=== PATIENT | male | born 1950 | race Caucasian/White ===

== ENCOUNTER 2017-11-02 21:03 | Emergency (ER) | payer MEDICARE, OTHER ==
[~2017-11-02] VITALS: Ht 175.3 cm; Wt 99.8 kg
[~2017-11-02 21:03] MED LIST: ASPIR 8181 MG; COZAAR100 MG; CRESTOR10 MG; DEMADEX20 MG; ELIQUIS5 MG; FERREX 150150 MG; FISH OIL 1,001000 M2; FLOMAX0.4 MG; FLONASE 0.05%50 MCG; MUCINEX TA600 MG/TA2; NIASPAN ER 101000 M1; NITROGLYCERIN0.4 MG; PERCOCET 7.5-31 EACH; POTASSIUM20; PREDNISONE 5 MG5 M1; PROTONIX40 M1; SYNTHROID175 MCG PO; TOPROL XL100 MG; WELLBUTRIN XL300 MG; XANAX1 MG
[2017-11-02] MEDS ORDERED: CLONAZEPAM 0.50.5 M1 (21:17)
[2017-11-02] MEDS ORDERED: ASPIR 8181 MG PO (21:17)
[2017-11-02] MEDS ORDERED: CLONAZEPAM 1 MG1 M1 (21:18)
[2017-11-02] MEDS ORDERED: RESTORIL15 MG PO (22:35)
[2017-11-02] MEDS ORDERED: BENZONATATE200 MG PO (22:35)
[2017-11-02 23:01] VITALS: BP 157/89
== END 2017-11-02 23:03 | disposition home or self-care (01) ==
LOC: M.ERS 21:03
DX: S20.211A Contusion of right front wall of thorax, initial encounter (principal); I10 Essential (primary) hypertension; K21.9 Gastro-esophageal reflux disease without esophagitis; E03.9 Hypothyroidism, unspecified; F32.9 Major depressive disorder, single episode, unspecified; I48.91 Unspecified atrial fibrillation; Z86.73 Personal history of transient ischemic attack (TIA), and cerebral infarction without residual deficits; Z95.1 Presence of aortocoronary bypass graft; Z95.5 Presence of coronary angioplasty implant and graft; X58.XXXA Exposure to other specified factors, initial encounter; Y93.89 Activity, other specified; Y92.89 Other specified places as the place of occurrence of the external cause; Y99.8 Other external cause status

== ENCOUNTER 2018-02-08 11:27 | Emergency (ER) | payer MEDICARE, OTHER ==
[~2018-02-08] VITALS: Ht 175.3 cm; Wt 99.3 kg
[~2018-02-08 11:27] MED LIST changes: +ASPIR 8181 MG PO; +BENZONATATE200 MG PO; +CLONAZEPAM 0.50.5 M1; +CLONAZEPAM 1 MG1 M1; +RESTORIL15 MG PO
[2018-02-08] MEDS ORDERED: LOVAZA1000 MG PO (11:39)
[2018-02-08] MEDS ORDERED: FLOMAX0.4 MG PO (11:40)
[2018-02-08] MEDS ORDERED: DEMADEX20 MG PO (11:40)
[2018-02-08 11:55] LABS: ABSOLUTE BASOPHILS 0.2 thou/uL (0.0-0.2); ABSOLUTE EOSINOPHILS 0.7 thou/uL (0.0-0.7); ABSOLUTE LYMPHOCYTES 1.9 thou/uL (0.8-5.3); ABSOLUTE MONOCYTES 1.1 thou/uL (0.0-1.2); ABSOLUTE NEUTROPHILS 8.1 thou/uL (1.6-8.1); BASOPHILS 1.3 %; EOSINOPHILS 5.5 %; HEMOGLOBIN 15.9 gm/dL (14.0-18.0); LYMPHOCYTES 15.6 %; MCH 31.1 pg (26.0-34.0); MCHC 33.9 g/dL (28.0-37.0); MCV 91.7 fL (80.0-100.0); MONOCYTES 9.5 %; MPV 7.8 fl. (7.2-11.1); NUCLEATED RBCS 0 /100WBC; PLATELET COUNT* 185 thou/uL (150-400); POLYS 68.1 %; RBC 5.12 mil/uL (4.50-6.00); RDW-CV 14.3 % (10.5-14.5); WBC 11.9 thou/uL (4.0-11.0)
[2018-02-08 11:58] LABS: ANION GAP 7 mmol/L (7-16); BUN 15 mg/dL (7-18); CALCIUM 8.7 mg/dL (8.5-10.1); CHLORIDE 107 mmol/L (98-107); CO2 29 mmol/L (21-32); CREATININE 1.3 mg/dL (0.6-1.3); GLUCOSE 123 mg/dL (70-99); POTASSIUM 3.9 mmol/L (3.5-5.1); SODIUM 143 mmol/L (136-145)
[2018-02-08 12:01] LABS: INR 1.2; PROTIME 11.2 Seconds (9.20-11.50)
[2018-02-08 12:09] LABS: ALBUMIN 3.2 g/dL (3.4-5.0); ALKALINE PHOSPHATASE 98 U/L (46-116); LIPASE 126 U/L (73-393); NT-PRO BRAIN NAT PEPTIDE 1007 pg/mL (<300); SGOT 60 U/L (15-37); SGPT 72 U/L (30-65); TOTAL BILIRUBIN 0.8 mg/dL (<0.1-1.0); TROPONIN-I LEVEL <0.06 ng/mL (<0.06)
[2018-02-08 12:17] LABS: URINE BILIRUBIN NEGATIVE (Negative); URINE BLOOD TRACE (Negative); URINE CLARITY CLEAR; URINE COLOR YELLOW; URINE GLUCOSE-RANDOM NEGATIVE (Negative); URINE KETONES NEGATIVE (Negative); URINE LEUKOCYTES-REFLEX NEGATIVE (Negative); URINE NITRITE-REFLEX NEGATIVE (Negative); URINE PROTEIN NEGATIVE (Negative); URINE SPECIFIC GRAVITY 1.015 (1.005-1.030); URINE UROBILINOGEN 0.2 E.U./dl (0.2-1.0)
[2018-02-08 14:29] VITALS: BP 108/75
--- NOTE | 2018-02-09 11:00 | EKG ---
[place] [address] ELECTROCARDIOGRAM REPORT Name: CIERRA CHENG [id number] Admission: 02/08/18 Attend Phys: Discharge: 02/08/18 Date of : 46 Report #: [id number] THIS REPORT FOR: //name// [facility] ED Test Date: 2018-02-08 Test Time: 11:31:28 Pat Name: CIERRA CHENG Department: Room: Gender: M Digital Marketing Strategist: : 1950 Requested By: Mansoor Simental Order Number: [id number] MD: Cassius Negron Measurements Intervals [place] Rate: 96 P: ND: QRS: 111 QRSD: 89 T: 18 QT: 382 QTc: 483 Interpretive Statements Atrial tachycardia Right axis deviation Borderline low voltage, extremity leads Abnormal R-wave progression, late transition Borderline ST depression, anterolateral leads Prolonged QT interval Baseline wander in lead(s) V3,V4 Compared to ECG 05/08/2016 02:37:34 no change Electronically Signed On 02-09-2018 10:59:55 CDT by Cassius Negron [email or web address] <ELECTRONICALLY SIGNED> By: Cassius Negron MD, FAC 02/09/18 1059 1131 1131 Cassius Negron MD, [facility] /EPI
--- NOTE | 2018-02-09 11:01 | EKG ---
[place] [address] ELECTROCARDIOGRAM REPORT Name: CIERRA CHENG [facility] [id number] Admission: 02/08/18 Attend Phys: Discharge: 02/08/18 Date of : 46 Report #: [id number] THIS REPORT FOR: //name// [facility] ED Test Date: 2018-02-08 Test Time: 12:48:20 Pat Name: CIERRA CHENG Department: Room: Gender: M Workday Consultant: Nigel [place] : 1950 Requested By: Mansoor Simental Order Number: [id number] MD: Cassius Negron Measurements Intervals [place] Rate: 91 P: IN: QRS: 166 QRSD: 158 T: -12 QT: 455 QTc: 560 Interpretive Statements Atrial tachycardia late transition Electronically Signed On 02-09-2018 11:01:30 CDT by Cassius Negron [email or web address] <ELECTRONICALLY SIGNED> By: Cassius Negron MD, [facility] 02/09/18 1101 1248 1248 Cassius Negron MD, FACC /EPI
== END 2018-02-08 14:31 | disposition home or self-care (01) ==
LOC: M.ERS 11:27
PROVIDERS: Emergency Medicine
DX: I48.91 Unspecified atrial fibrillation (principal); I10 Essential (primary) hypertension; G47.30 Sleep apnea, unspecified; K21.9 Gastro-esophageal reflux disease without esophagitis; E03.9 Hypothyroidism, unspecified; F32.9 Major depressive disorder, single episode, unspecified; N40.0 Benign prostatic hyperplasia without lower urinary tract symptoms; M10.9 Gout, unspecified; Z86.73 Personal history of transient ischemic attack (TIA), and cerebral infarction without residual deficits; Z88.8 Allergy status to other drugs, medicaments and biological substances

== ENCOUNTER 2019-03-18 22:09 | Observation (INO) | payer MEDICARE, OTHER ==
[~2019-03-18] VITALS: Ht 175.3 cm; Wt 100.7 kg
[~2019-03-18 22:09] MED LIST changes: -CLONAZEPAM 0.50.5 M1; +CLONAZEPAM 0.50.5 M1 PO; -CRESTOR10 MG; +CRESTOR10 MG PO; +DEMADEX20 MG PO; -FERREX 150150 MG; +FERREX 150150 MG PO; +FLOMAX0.4 MG PO; -FLONASE 0.05%50 MCG; +FLONASE 0.05%50 MCG INH; +LOVAZA1000 MG PO; -MUCINEX TA600 MG/TA2; +MUCINEX100 MG PO; +NIASPAN 500 MG500 M1 PO; -NIASPAN ER 101000 M1; -NITROGLYCERIN0.4 MG; +NITROGLYCERIN0.4 MG SUBLING; -POTASSIUM20; +POTASSIUM20 PO; -TOPROL XL100 MG; +TOPROL XL50 MG PO; -WELLBUTRIN XL300 MG; +WELLBUTRIN XL300 MG PO
[2019-03-18 22:23] VITALS: BP 140/76
[2019-03-18 22:34] LABS: ABSOLUTE BASOPHILS 0.1 thou/uL (0.0-0.2); ABSOLUTE EOSINOPHILS 0.4 thou/uL (0.0-0.7); ABSOLUTE LYMPHOCYTES 1.8 thou/uL (0.8-5.3); ABSOLUTE MONOCYTES 1.2 thou/uL (0.0-1.2); ABSOLUTE NEUTROPHILS 8.4 thou/uL (1.6-8.1); BASOPHILS 0.9 %; EOSINOPHILS 3.3 %; HEMATOCRIT 45.8 % (42.0-52.0); HEMOGLOBIN 15.6 gm/dL (14.0-18.0); LYMPHOCYTES 15.4 %; MCH 31.1 pg (26.0-34.0); MCV 91.3 fL (80.0-100.0); MONOCYTES 10.3 %; MPV 7.6 fl. (7.2-11.1); NUCLEATED RBCS 0 /100WBC; PLATELET COUNT* 184 thou/uL (150-400); POLYS 70.1 %; RBC 5.02 mil/uL (4.50-6.00); RDW-CV 14.5 % (10.5-14.5); WBC 11.9 thou/uL (4.0-11.0)
[2019-03-18 22:52] LABS: APTT 29.2 Seconds (25.0-31.3); INR 1.1; PROTIME 11.4 Seconds (9.20-11.50)
[2019-03-18 23:11] LABS: POTASSIUM 4.1 mmol/L (3.5-5.1); TOTAL BILIRUBIN 0.6 mg/dL (<0.1-1.0); TOTAL PROTEIN 6.7 g/dL (6.4-8.2); TROPONIN-I LEVEL 0.15 ng/mL (<0.06)
[2019-03-18 23:31] LABS: ALBUMIN 2.9 g/dL (3.4-5.0); CALCIUM 9.1 mg/dL (8.5-10.1); CREATININE 1.4 mg/dL (0.6-1.3); MAGNESIUM 2.1 mg/dL (1.8-2.4)
[2019-03-19 00:20] VITALS: BP 166/94
[2019-03-19 00:45] VITALS: BP 155/77
--- NOTE | 2019-03-19 00:45 | NUR ---
REPORT RECEIVED FROM ER AND ADMITTED TO ROOM. PT CONT HAVING CP RATING 2/10, JUST ANNOYING. O2 ON AT 2L/NC, NO SOB NOTED. TELEMETRY APPLIED SHOWING SR. SEE ADMISSION ASSESSMENT AND HX. STAYING AT BEDSIDE. WILL CONT TO MONITOR AND ASSIST NEEDED.
[2019-03-19] MEDS ORDERED: DEXILANT30 MG PO (01:01)
[2019-03-19] MEDS ORDERED: ZYRTEC10 M5 PO (01:11)
[2019-03-19] MEDS ORDERED: MULTAQ 400 MG400 MG PO (01:12)
[2019-03-19] MEDS ORDERED: NEURONTIN600 MG PO (01:13)
[2019-03-19] MEDS ORDERED: FINASTERIDE5 MG PO (01:15)
[2019-03-19] MEDS ORDERED: AZELASTINE137 MCG/0. INH (01:17)
[2019-03-19] MEDS ORDERED: PLAVIX 75 MG TA75 M1 PO (01:19)
[2019-03-19] MEDS ORDERED: SYMBICORT160 MCG/4. INH (01:20)
[2019-03-19] MEDS ORDERED: VENTOLIN HFA 1818 GM INH (01:21)
[2019-03-19] MEDS ORDERED: GLYBURIDE 2.52.5 MG PO (01:22)
[2019-03-19 04:00] VITALS: BP 123/66
--- NOTE | 2019-03-19 06:22 | NUR ---
SLEPT WELL TONIGHT AFTER 0200, NPO FOR POSS TEST TODAY. TELEMETRY SHOWING SB WITH 1ST AVB WHILE SLEEPING. HS GOALS OF REST AND SAFETY ACHIEVED. HOURLY ROUNDING OBSERVED.
[2019-03-19 08:36] VITALS: BP 159/89
--- NOTE | 2019-03-19 10:59 | EKG ---
[place] [address] ELECTROCARDIOGRAM REPORT Name: CIERRA CHENG Room: [address] ADM IN .R.#: [id number] Admission: 03/18/19 Attend Phys: Micheal Mendez MD Discharge: Date of : 46 Report #: [id number] THIS REPORT FOR: //name// [facility] ED Test Date: 2019-03-18 Test Time: 22:15:28 Pat Name: CIERRA CHENG Department: Room: [facility] Gender: M Manager Valuation: AJ : 1950 Requested By: Morales Lnua Order Number: [id number] MD: Cassius Negron Measurements Intervals [place] Rate: 63 P: 36 [place]: 202 QRS: 126 QRSD: 93 T: 173 QT: 402 QTc: 412 Interpretive Statements Sinus rhythm artifact noted Right axis deviation Abnormal R-wave progression, late transition Nonspecific T abnrm, anterolateral leads Compared to ECG 02/08/2018 12:48:20 Ectopic atrial tachycardia, unifocal no longer present Electronically Signed On 03-19-2019 10:59:37 CDT by Cassius Negron [email or web address] <ELECTRONICALLY SIGNED> By: Cassius Negron MD, [facility] 03/19/19 1059 2215 2215 Cassius Negron MD, [facility] /EPI
[2019-03-19 12:00] VITALS: BP 125/76
[2019-03-19 13:57] VITALS: BP 159/89
[2019-03-20 02:05] LABS: GLYCOHEMOGLOBIN (HGB A1C) 7.2 % (4.8-5.6)
--- NOTE | 2019-03-20 12:55 | CON ---
[address] [address] CONSULTATION Name: ANTONIETACATHLEENCIERRA PACHECO Room: [address] Peter Nicholson#: [id number] Admission: 03/18/19 Attend Phys: Micheal Mendez MD Discharge: 03/19/19 Date of : 46 Report #: [id number] THIS REPORT FOR: //name// CC: Micheal Mendez [facility] unknown DATE OF SERVICE: 03/19/2019 CARDIOLOGY CONSULTATION HISTORY OF PRESENT ILLNESS: The patient is a 68-year-old white male who I was asked to see in the hospital today after he complained of chest pain. The patient has an extensive past medical history. Unfortunately, there are no old records here at [facility]. He previously lived at [place], [place]. He receives a lot of his healthcare at . He has a long history of atrial fibrillation. He has been cardioverted in the past. He was on Eliquis in the past. He has had 2 cardiac ablations in the past. His last was about 3 months ago at . He has a long history of coronary artery disease. His first coronary stent was placed at the [facility] more than 10 years ago. He eventually had triple vessel coronary bypass surgery about 4 years ago in [place], [place]. He had a coronary stent placed a couple of years ago at . Recently, he has been going to cardiac rehab here at [facility]. He denied any recent exertional chest pain. He does get short of breath with exertion. He has had no palpitations recently. He states he was doing well until yesterday, he felt a right-sided upper chest pain. It was a sharp pain. It tended to come and go. They are not constant. He came to the emergency room. He denied any radiation of the pain. He did note some belching. He denies any trauma to the chest or rash. He apparently had a chill, but no cough. He has had no bleeding. PAST MEDICAL HISTORY: Significant for back surgery, cholecystectomy, carpal tunnel surgery, knee surgery, hypertension and diabetes. MEDICATIONS: His medications consist of losartan, metoprolol, Synthroid, bupropion, potassium, Crestor, Protonix, niacin, oxycodone, aspirin, clonazepam, torsemide, Flomax. He previously was on amiodarone, but developed pulmonary fibrosis. FAMILY HISTORY: Negative for heart disease. 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 No smoking or alcohol abuse. REVIEW OF SYSTEMS: He apparently had a stroke in the past affecting his right side that recovered. He has been diagnosed with pulmonary fibrosis, had a peptic ulcer in the past. He had nonalcoholic steatohepatitis [place] [address] CONSULTATION Name: CIERRA CHENG Room: [address] Bharat#: [id number] Admission: 03/18/19 Attend Phys: Micheal Mendez MD Discharge: 03/19/19 Date of : 46 Report #: [id number] has had a kidney stone and spinal stenosis. No cancer. No psychiatric and no chronic skin condition. PHYSICAL EXAMINATION: GENERAL: Revealed an elderly male, lying in bed. He appeared in no distress. VITAL SIGNS: Blood pressure 120/60, pulse 60. He is afebrile. HEENT: He is anicteric. Conjunctivae pink. Mucous membranes moist. NECK: Veins nondistended. No carotid bruits. Neck is supple. CHEST: Clear to auscultation. CARDIOVASCULAR: Regular rate and rhythm. ABDOMEN: Soft. EXTREMITIES: Had no edema. Dorsalis pedis pulse 2+ bilaterally. SKIN: Warm and dry. NEUROLOGIC: Nonfocal. LYMPH: No adenopathy. MUSCULOSKELETAL: No joint effusion. RADIOLOGICAL DATA: His ECG showed a sinus rhythm with nonspecific ST and T-wave changes noted. His workup in the emergency room last night, he had a portable chest x-ray that showed cardiomegaly, lower lobe atelectasis, no effusion, mild increased interstitial lung markings. LABORATORY DATA: Sodium 141, BUN is 1, creatinine 1.4, glucose is 254. His liver function studies were normal. Albumin is 2.9. Troponin is 0.06; last night, however, it was actually 0.15. His white blood cell count 11.9, hemoglobin 15.6. IMPRESSION AND RECOMMENDATIONS: 1. Right-sided chest pain. Atypical for angina. However, because of a history of coronary artery disease and borderline troponin, I did recommend a Lexiscan Cardiolite. 2. Hypertension. The patient is on a beta brooke and ARB. 3. Diabetes. 4. Hyperlipidemia. The patient is on a statin drug. 5. History of atrial fibrillation. Previous ablation. The patient is on Multaq. 6. 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 7. Previous stroke. If recurrent atrial fibrillation, I will consider resuming Eliquis. 8. Spinal stenosis. 9. History of kidney stones. <ELECTRONICALLY SIGNED> By: Cassius Negron MD, [facility] 03/20/19 1255 [id number] [id number] Sajan Negron MD, FACC /nt
== END 2019-03-19 16:20 | disposition home or self-care (01) ==
LOC: M.ERS 22:09 → M.TBA-ER 23:49 → M.2W 23:49
PROVIDERS: Family Medicine; ADMIT Internal Medicine
DX: R07.89 Other chest pain (principal); I25.10 Atherosclerotic heart disease of native coronary artery without angina pectoris; N40.0 Benign prostatic hyperplasia without lower urinary tract symptoms; K21.9 Gastro-esophageal reflux disease without esophagitis; I48.0 Paroxysmal atrial fibrillation; K75.81 Nonalcoholic steatohepatitis (NASH); E03.9 Hypothyroidism, unspecified; I10 Essential (primary) hypertension; Z86.73 Personal history of transient ischemic attack (TIA), and cerebral infarction without residual deficits; R79.89 Other specified abnormal findings of blood chemistry; Z79.01 Long term (current) use of anticoagulants